=== PATIENT | female | born 1990 | race Caucasian/White ===

== ENCOUNTER 2016-09-04 21:06 | Emergency (ER) | payer SELFPAY ==
[2016-09-04 21:45] LABS: APPEARANCE,URINE Clear (CLEAR); COLOR,URINE Yellow (YELLOW); OCCULT BLOOD,URINE Negative (NEGATIVE); UROBILINOGEN URINE 0.2 Eu (0.2-1.0)
[2016-09-04 21:50] LABS: BASOPHILS % 0.3 (0.0-1.5); EOSINOPHILS % 1.8 % (0.0-6.8); LYMPHOCYTES # 3.6 # k/uL (0.6-4.0); MEAN CORPUSCULAR HEMOGLOBIN 28.4 pg (28.0-34.0); MONOCYTES # 0.2 # k/uL (0.0-0.9); MONOCYTES % 2.6 % (0.0-11.0); NEUTROPHILS # 4.8 # k/uL (1.4-7.7)
[2016-09-04] MEDS ORDERED: 0.9 % SODIUM CHLORIDE 1,000 ML IV ONE (21:51)
[2016-09-04] MEDS: 0.9 % SODIUM CHLORIDE 1,000 ML IV SCH (22:00)
[2016-09-04 22:04] LABS: eGFR (African) > 60; eGFR (Non-African) > 60
[2016-09-04 22:05] LABS: AMPHETAMINE NEGATIVE ng/mL (<1000); BARBITURATES NEGATIVE ng/mL (<300); CANNABINOIDS NON NEGATIVE ng/mL (<50); COCAINE NEGATIVE ng/mL (<150); METHAMPHETAMINE NEGATIVE ng/mL (<1000); METHYLENEDIOXYMETHAMPHETAMINE NEGATIVE ng/mL (<500); SERUM HCG NEGATIVE (NEGATIVE)
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
[2016-09-05 02:42] VITALS: BP 118/74
--- NOTE | 2016-09-05 05:30 | Diagnostic Imaging Report ---
Report Submission Date: Sep 04, 2016 10:53:43 PM [employer]PER[employer]ENT Patient ~ Study Name: EMANUEL LUNA ~ Date: Sep 04, 2016 10:30:32 PM [employer]PER[employer]ENT ~ Modality Type: CT\SR Gender: F ~ Description: CT BRAIN W/O CONTRAST : 88 ~ Institution: [facility] Physician: JOHN PAUL NEVES ~ ~ ~ ~ Computed tomography of the head without contrast History: Memory loss Findings: Transverse brain sections are obtained without contrast revealing normal-sized ventricles and sulci. Corbin white differentiation is intact. There is no intracranial hemorrhage, mass lesion, or fluid collection. The skull is intact. Impression: Normal exam. ~ Electronically signed on Sep 04, 2016 10:53:43 PM [employer] AGENT by: Corby BUTLER
== END 2016-09-05 00:20 | disposition home or self-care (01) ==
LOC: ED 21:06
DX: F10.129 Alcohol abuse with intoxication, unspecified (principal); Y90.7 Blood alcohol level of 200-239 mg/100 ml
CPT/HCPCS: 70450; 80053; 80320; 80349; 80377; 81002; 84703; 85025; J7030; 99283; G0477; G0480; G0482; S1016

== ENCOUNTER 2017-12-13 10:27 | Outpatient (CLI) | payer OTHER | END 2017-12-13 10:30 | LOC: LABRHC 10:27 | PROVIDERS: ATTEND Physician Assistant | DX: N93.9 Abnormal uterine and vaginal bleeding, unspecified (principal); R10.2 Pelvic and perineal pain | CPT/HCPCS: 87480; 87491; 87510; 87591; 87798 ==

== ENCOUNTER 2018-07-09 11:44 | Outpatient (CLI) | payer OTHER ==
[~2018-07-09 11:44] MED LIST: LIDOCAINE HCL 2% PF 100MG/5ML VIAL IJ ONE; SALINE FLUSH 10 ML DISP.SYRIN IVF ONE; TRIAMCINOLONE ACETONID 40MG/ML VIAL ONE
--- NOTE | 2018-07-15 14:25 | CERVICAL ESI WITH FLUORO ---
PROCEDURE: Right C6-C7 epidural steroid injection with fluoroscopic guidance. DESCRIPTION OF PROCEDURE: The risks and benefits were discussed with the patient, including the risks of infection, bleeding, nerve injury including paralysis, and headache. Furthermore, I discussed the risk of steroid exposure causing hyperglycemia, hypertension, osteoporosis, or increased infectious risks. The patient understood these risks and agreed to proceed. Consent was obtained. The patient was placed prone on the fluoroscopy table with a pillow underneath the chest to afford slight anterior flexion of the cervical spine. The patient's back of the neck was cleaned and a sterile drape was applied. A Tuohy epidural needle was inserted with a right paramedian approach at the C6-C7 level. The position of the needle was verified with AP and lateral fluoroscopic views. The needle was advanced with a normal saline [id number] technique until [id number] was obtained. On obtaining [id number] to normal saline it was verified that there was no aspiration of CSF or blood. At this point, Omnipaque 240 myelogram dye was injected into the cervical epidural space. It was verified with fluoroscopic views that the dye was located within the epidural space in the desired distribution. At this point, the medication was injected into the cervical epidural space. The stylet was replaced in the needle and the needle was removed from the neck. The neck was cleaned and a bandage was applied over the injection site. The patient tolerated the procedure well and was monitored afterwards for a total of 20 minutes during which time the vital signs remained stable and no adverse sequelae were experienced. The patient was discharged home in good condition. Prior to discharge the patient was given discharge instructions. ASSESSMENT: 1. Right upper extremity radiculitis. 2. Spasm, possible facet mediated pain as well. PLAN: Right C6-C7 epidural steroid injection with fluoroscopic guidance today. FOLLOW UP: Return to clinic if problems develop or worsen. cc: Dr. Anahy BUTLER
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
== END 2018-07-09 11:45 ==
LOC: OUT 11:44
PROVIDERS: ATTEND Anesthesiology Pain Medicine
DX: M54.12 Radiculopathy, cervical region (principal); M62.838 Other muscle spasm
CPT/HCPCS: 62321; 99204; J2001; J3301; Q9966

== ENCOUNTER 2019-07-25 08:34 | Emergency (ER) | payer OTHER ==
--- NOTE | 2019-07-25 09:06 | ED Physician Documentation ---
General Adult - HISTORIAN Historian: patient, other (FRIEND) - HPI Chief Complaint: General Adult Additional Information: NAUEA EMESIS NO DIARRHEA. FEVER TO 100.3 OTHER FAMILOY HAS SIMILAR Onset: days ago (4) Timing: still present, worse Severity: moderate Last known Well Code/Unknown Code: Known - ROS CONST: fever, recent illness EYES/ENT: nasal drainage, nasal congestion CVS/RESP: shortness of breath, cough GI/: vomiting, nausea. denies: diarrhea NEURO/PSYCH: headache (MILD). denies: anxiety, depression - PAST HX Past History: none Other History: none Surgeries/Procedures: cholecystectomy Immunizations: denies: UTD Allergies/Adverse Reactions: Allergies Allergy/AdvReac Type Severity Reaction Status Date / Time morphine Allergy Verified 07/25/19 09:15 peanut Allergy Verified 07/25/19 09:15 Home Medications: Ambulatory Orders Medication Instructions Recorded Ondansetron HCl Rapdis [Zofran Odt] 4 mg PO Q4 #8 tab.rapdis 07/25/19 - SOCIAL HX Smoking History: cigarettes Alcohol Use: occasionally Drug Use: none - FAMILY HX Family History: No - VITAL SIGNS Vital Signs: Vital Signs Temp Pulse Resp BP Pulse Ox 118/74 09/05/16 02:39 - REVIEWED ASSESSMENTS Nursing Assessment Reviewed: Yes Vitals Reviewed: Yes General Adult Physical Exam - PHYSICAL EXAM GENERAL APPEARANCE: moderate distress EENT: eye inspection normal. No: ENT inspection normal, pharynx normal NECK: normal inspection, thyroid normal. No: lymphadenopathy RESPIRATORY: no resp distress, chest non-tender, breath sounds normal CVS: reg rate & rhythm, heart sounds normal ABDOMEN: soft, non-tender (EXCEPT VERY SLIGHT LLG) BACK: normal inspection SKIN: warm/dry, normal color. No: cyanosis, diaphoresis EXTREMITIES: non-tender NEURO: oriented X3, motor nml, sensation nml, mood/affect nml Discharge Clincal Impression: influenza B Prescriptions: Ondansetron HCl Rapdis [Zofran Odt] 4 mg PO Q4 #8 tab.rapdis Referrals: Anahy Weeks MD [STAFF PHYSICIAN] - 2 Days Comments: home rest ort w/gatoraiod plus 1/3 water. zofran prn Condition: Good Disposition: 01 HOME, SELF-CARE Decision to Admit: NO Decision Time: 11:02
[2019-07-25] MEDS ORDERED: 0.9 % SODIUM CHLORIDE 1,000 ML IV ONE ×2 (09:14→09:52)
[2019-07-25] MEDS ORDERED: ONDANSETRON HCL/PF 4 MG/ 2ML VIAL IVP ONE (09:17)
[2019-07-25 11:13] VITALS: BP 108/70
[2019-07-25 12:49] LABS: APPEARANCE,URINE CLEAR (CLEAR); COLOR,URINE YELLOW (YELLOW); OCCULT BLOOD,URINE 2+ (NEGATIVE); PH URINE 5.5 (5.0 - 8.0); UROBILINOGEN URINE 0.2 Eu (0.2-1.0)
== END 2019-07-25 10:52 | disposition home or self-care (01) ==
LOC: ED 08:34
DX: J11.89 Influenza due to unidentified influenza virus with other manifestations (principal); F17.210 Nicotine dependence, cigarettes, uncomplicated
CPT/HCPCS: 81002; 87400; 96361; 96374; 99284; J2405; J7030; S1016